=== PATIENT | female | born 1965 | race African-American/Black ===

== ENCOUNTER 2025-06-01 15:47 | Emergency (ER) | payer BC ==
[2025-06-01 16:17] LABS: #Basophils 0.05 10x3/uL (0.0-0.2); #Eosinophils 0.17 10x3/uL (0.0-0.5); #Monocytes 0.45 10x3/uL (0.0-1.1); #Neutrophils 2.95 10x3/uL (1.5-8.4); %Basophils 0.7 % (0.0-2.0); %Eosinophils 2.4 % (0.0-6.0); %Lymphocytes 49.8 % (18.0-47.0); %Monocytes 6.2 % (0.0-10.0); %Neutrophils 40.8 % (40.0-75.0); Hematocrit 43.5 % (34.9-44.5); Hemoglobin 14.3 g/dL (12.0-15.5); Mean Corpuscular Hemoglobin 30.1 pg (27.0-33.0); Mean Corpuscular Volume 91.6 fL (81.6-98.3); Platelet Count 268 10x3/uL (150-450); Red Blood Cell (RBC) Count 4.75 10x6/uL (3.90-5.03); White Blood Cell (WBC) Count 7.23 10x3/uL (3.5-10.5)
[2025-06-01 16:34] LABS: ALT (SGPT) 19 U/L (Less than 34); AST (SGOT) 16 U/L (11-34); Albumin 4.1 g/dL (3.1-4.5); Alkaline Phosphatase 83 U/L (40-110); Anion Gap 15 mmol/L (10-20); BUN (Urea Nitrogen) 12 mg/dL (9.8-20.1); Bilirubin, Total 0.6 mg/dL (0.3-1.2); Calc. Creatinine Clearance 0 mL/min (70-130); Calcium 9.8 mg/dL (7.8-10.44); Carbon Dioxide 25 mmol/L (22-29); Chloride 105 mmol/L (98-107); Globulin 3.7 g/dL (2.4-3.5); Glucose 95 mg/dL (70-105); Potassium 3.8 mmol/L (3.5-5.1); Sodium 141 mmol/L (136-145)
[2025-06-01 16:40] LABS: Troponin I Less than 0.010 ng/mL (< 0.028)
[2025-06-01] MEDS ORDERED: Ondansetron PF 4 MG/2 ML Vial ONE (17:03)
[2025-06-01] MEDS ORDERED: hydrALAZINE 20 MG/ML VIAL ONE (18:09)
[2025-06-01 19:28] LABS: Troponin I Less than 0.010 ng/mL (< 0.028)
[2025-06-01] MEDS ORDERED: Acetaminophen 500 MG TAB ONE (19:41)
== END 2025-06-01 20:46 | disposition home or self-care (01) ==
LOC: CSHERS 15:47
DX: I10 Essential (primary) hypertension (principal); R29.700 NIHSS score 0; Z53.21 Procedure and treatment not carried out due to patient leaving prior to being seen by health care provider
CPT/HCPCS: 36415; 71045; 93005; 94760; 96374; 96375; J0360; J2405